=== PATIENT | female | born 1990 | race Two or more races ===

== ENCOUNTER → 2024-06-24 | Day surgery (SDC) | payer MEDICAID ==
[2024-06-22 09:54] LABS: Basophils # (auto) 0 10 ^3/uL (0-0.2); Basophils % (auto) 0.5 % (0.0-2.0); Eosinophils # (auto) 0.3 10 ^3/uL (0-0.8); Eosinophils % (auto) 3.5 % (0.0-7.0); Hematocrit 39.3 % (36.0-46.0); Lymphocytes # (auto) 2.6 10 ^3/uL (0.4-5.4); Lymphocytes % (auto) 29.2 % (10.0-50.0); Mean Corpuscular Hemoglobin 27.6 pg (28.0-32.0); Mean Corpuscular Volume 83.5 fL (80.0-100.0); Monocytes # (auto) 0.4 10 ^3/uL (0-1.3); Monocytes % (auto) 4.7 % (0.0-12.0); Neutrophils # (auto) 5.5 10 ^3/uL (1.6-8.6); Neutrophils % (auto) 62.1 % (37.0-80.0); Platelet Count (auto) 231 10^3/uL (140-450); Red Cell Distribution Width 13.7 % (11.8-14.3); White Blood Cell 8.9 10^3/uL (4.4-10.8)
[2024-06-22 09:59] LABS: Albumin 4.3 g/dL (3.2-4.8); Alkaline Phosphatase 84 U/L (46-116); Anion Gap 7 (5-15); Carbon Dioxide 28 mmol/L (20-31); Chloride 106 mmol/L (98-107); Potassium 3.9 mmol/L (3.5-5.1); Sodium 141 mmol/L (136-145)
[2024-06-22 10:00] LABS: Bilirubin, Total 0.4 mg/dL (0.2-1.0); Total Protein 6.7 g/dL (5.7-8.2)
[2024-06-22 10:02] LABS: INR 1.04 (0.9-1.15); Partial Thromboplastin Time 27.2 SEC (24.5-34.5)
[2024-06-22 10:07] LABS: Alanine Aminotransferase 125 U/L (7-40); Aspartate Aminotransferase 64 U/L (13-40); Blood Urea Nitrogen 8 mg/dL (9-23); Glucose 141 mg/dL (74-106)
--- NOTE | 2024-06-22 10:40 | DVHHP ---
ADMIT DATE: 06/24/2024 CHIEF COMPLAINT: Heavy menstrual bleeding. HISTORY OF PRESENT ILLNESS: This is a 33-year-old female 4, para 4, 3 living children. She has had 4 prior vaginal deliveries, one including a 22-week previable delivery. She has a history of bilateral salpingectomy for sterilization. The patient endorses a long history of chronic, heavy menstrual bleeding with regular cycles. Periods are associated with bloating and [id number] dysmenorrhea. Cycles are regular, every 28-33 days apart. Flow is 8-9 days with heavy clots and passage of excessive bleeding. She is using greater than 6-10 pads per day. She denies any dyspareunia. Workup has showed a normal Pap smear in 2023. Her pelvic ultrasound showed a normal uterus without any polyps or uterine fibroids. She has failed prior attempts of medical treatment to control her excessive menstrual bleeding. PAST MEDICAL HISTORY: Negative. PAST SURGICAL HISTORY: Laparoscopic bilateral tubal ligation via bilateral salpingectomy. MEDICATIONS: Vitamin D. ALLERGIES: DICLOFENAC. SOCIAL HISTORY: The patient is . 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 She denies any tobacco, alcohol or illicit drug use. REVIEW OF SYSTEMS: A 14-point review of systems is negative as otherwise stated in the history of present illness. PHYSICAL EXAMINATION: VITAL SIGNS: The patient is 5 foot 2 inches tall. She weighs 196 pounds. Blood pressure is 126/80. GENERAL: She is pleasant, alert, in no acute distress. HEENT: Normocephalic, atraumatic. Extraocular muscles intact. NECK: Supple, without any palpable thyromegaly. CHEST: Symmetrical with normal S1 and S2 heart sounds. No gallops or murmurs. PULMONARY: Clear to auscultation bilaterally. ABDOMEN: Soft. No masses, nontender. EXTREMITIES: Without cyanosis, edema or deformity. PELVIC: Deferred to the operating room. ASSESSMENT: * Menorrhagia. * Dysmenorrhea. PLAN: The patient will be admitted for outpatient procedure. She has consented for: Pelvic exam under anesthesia, operative hysteroscopy, uterine dilation and curettage, NovaSure endometrial ablation. The risks, benefits and alternatives to surgery have been discussed with the patient. Informed consent has been obtained. Risks of pain, bleeding, infection, uterine perforation, injury to adjacent organs, possible blood transfusion all discussed with the patient and informed consent was obtained. The patient also understands that this procedure is intended to diminish monthly menstrual flow. No guarantees given for resolution of dysmenorrhea or pelvic pain. No guarantee given for cessation of periods with complete amenorrhea. The patient verbalized understanding and informed consent was obtained. DO AQUILES Diaz/NETO TID: [id number] RECEIPT: [id number] MTDD
[2024-06-22 12:15] LABS: Urine Bacteria FEW /hpf (None Seen); Urine Blood Negative /uL (Negative); Urine Clarity Clear (Clear); Urine Color Light-Yellow (Yellow); Urine Protein, UAD Negative (Negative); Urine Urobilinogen Normal (Negative); Urine WBC 3 /hpf (0 - 5)
[~2024-06-24] VITALS: Ht 157.5 cm; Wt 83.5 kg
[~2024-06-24] MED LIST: CHOL20007 PO; DexAMETHasone SOD PHOS 10MG/1ML VIAL INJ ONE; HYDROmorphone HCL 2 MG/ML VL/or syr IV PRN; IBUP-1455 PO; LIDOCAINE 1% INJ PF 5ML AMP ONE; MEPERIDINE HCL (25 MG/ML) 1ML VIAL ONE; METOCLOPRAMIDE HCL 5MG/ml INJ 2ml VIAL ONE; MIDAZOLAM HCL 2MG/2ML 2ml VIAL (1mg/ml) ONE; MORPHINE SULFATE INJ 2 MG/ml SYRG IV PRN; ONDANSETRON HCL 4 MG/2 ML VIAL ONE; PROPOFOL 10 MG/ML 20 ML IV ONE; SODIUM CHLORIDE LOCK 10 ML ONE; ceFAZolin 2 GM/D5W100ml 100 ML IV ONE; fentaNYL CITRATE 100 MCG/2 ML VL IV PRN; fentaNYL CITRATE 100 MCG/2 ML VL ONE
[2024-06-24] MEDS: FERRIC SUBSULFATE TOPICAL SOLN 30 ML BTL ONE (13:40)
[2024-06-24 13:45] VITALS: PULSE 109; RESP 17; TEMP 97.8; O2SAT 99
[2024-06-24] MEDS: HYDROmorphone HCL 2 MG/ML VL/or syr IV PRN (14:34)
--- NOTE | 2024-06-24 14:38 | DVHOP ---
DATE OF SURGERY: 06/24/2024 PREOPERATIVE DIAGNOSIS: Excessive menstrual bleeding. POSTOPERATIVE DIAGNOSES: Excessive menstrual bleeding plus uterine enlargement. PROCEDURES PERFORMED: Pelvic exam under anesthesia, operative hysteroscopy, dilation and curettage, NovaSure endometrial ablation. SURGEON: Nicola Bynum DO TRAVELING ELECTRICIAN: Jay weathers. TYPE OF ANESTHESIA: General. ANESTHESIOLOGIST: Dr. Dinah Ng DESCRIPTION OF FINDINGS: An enlarged uterus, approximately 12-week size, uterine cavity sounds to 10 cm. Successful hysteroscopy revealed normal bilateral tubal ostia. No intrauterine pathology such as polyps or fibroids seen. No gross evidence of malignancy. TECHNICAL PROCEDURE: After informed consent was obtained, the patient was taken to the operating room where she underwent smooth induction with general anesthesia. The patient was placed in dorsal lithotomy position in Pawel stirrups. The vagina, perineum and abdomen were thoroughly prepped and the patient sterilely draped in usual fashion. A pelvic exam was then performed under anesthesia with the above noted findings. A weighted speculum was placed into the patient's vagina. The anterior lip of the cervix was grasped with a single tooth tenaculum. Uterine cavity sounded to 10 cm. A SureSound was used to calculate the total length of the uterine cavity, which was found to be 5 cm. Next, serial gentle dilation of the cervix was perforrmed with [place] dilators to achieve #7 mm of cervical dilation. A 0 degree hysteroscope was advanced through the endocervix and into the uterine cavity under direct visualization. Survey of the cavity revealed benign findings as described above. The hysteroscope was removed. A sharp uterine curettage was performed. The uterine curettings were placed on a Telfa pad and the specimen submitted. Next, the NovaSure device was introduced through the cervix into the uterine cavity. The device was seated per stone unloader's instructions. The uterine width was calculated to be 4.8 cm. Initially, the cavity integrity test did not pass likely due to enlarged uterine size and leaking of gas from the cervix. I therefore put a pursestring stitch of #1 Vicryl around the cervix and this was cinched down. The cavity integrity test passed upon performing this maneuver. The endometrial ablation cycle was then initiated and continued for approximately 1 minute 16 seconds. At the conclusion of the ablation, the array was removed from the patient's uterus and another diagnostic hysteroscopy was performed and photodocumentation was obtained. The endometrial cavity proved to be successfully fully ablated.. The hysteroscope was removed. There was minimal bleeding from the ectocervix noted at the site of tenaculum site application at 12:00 O'clock. Interrupted sutures of 3-0 Vicryl were placed across the anterior lip of the cervix with good hemostasis noted. Minimal bleeding from the posterior cervix was noted and Monsel's was applied with good hemostasis. At this point, all instrumentation was removed from the patient's vagina. She was taken out of lithotomy position, awakened, and taken to recovery room in stable condition. INTRAOPERATIVE COMPLICATIONS: None. ESTIMATED BLOOD LOSS: Less than 25 mL. POSTOPERATIVE CONDITION: Stable. SPECIMENS: Endometrial curetting (EMC) COMPLICATIONS: None. DO AQUILES Diaz/GRETEL TID: [id number] RECEIPT: [id number] MTDD
[2024-06-24 14:50] VITALS: BP 130/79; PULSE 94; RESP 15; O2SAT 95
[2024-06-24] MEDS: METOCLOPRAMIDE HCL 5MG/ml INJ 2ml VIAL IV ONE (15:07)
== END | disposition home or self-care (01) ==
LOC: SUR 08:54
PROVIDERS: ATTEND Obstetrics & Gynecology
DX: N93.9 Abnormal uterine and vaginal bleeding, unspecified (principal); N92.0 Excessive and frequent menstruation with regular cycle; N94.6 Dysmenorrhea, unspecified; E66.9 Obesity, unspecified; Z68.33 Body mass index [BMI] 33.0-33.9, adult; Z90.79 Acquired absence of other genital organ(s); Z64.1 Problems related to multiparity
CPT/HCPCS: 36415; 58563; 80053; 81001; 84702; 85025; 85610; 85730; 86850; 86900; 86901; 88305; J1100; J1171; J2175; J2250; J2405; J2704; J2765; J3010

== ENCOUNTER 2025-01-25 12:47 | Outpatient (CLI) | payer MEDICAID ==
[~2025-01-25 12:47] MED LIST changes: -DexAMETHasone SOD PHOS 10MG/1ML VIAL INJ ONE; -HYDROmorphone HCL 2 MG/ML VL/or syr IV PRN; -LIDOCAINE 1% INJ PF 5ML AMP ONE; -MEPERIDINE HCL (25 MG/ML) 1ML VIAL ONE; -METOCLOPRAMIDE HCL 5MG/ml INJ 2ml VIAL ONE; -MIDAZOLAM HCL 2MG/2ML 2ml VIAL (1mg/ml) ONE; -MORPHINE SULFATE INJ 2 MG/ml SYRG IV PRN; -ONDANSETRON HCL 4 MG/2 ML VIAL ONE; -PROPOFOL 10 MG/ML 20 ML IV ONE; -SODIUM CHLORIDE LOCK 10 ML ONE; -ceFAZolin 2 GM/D5W100ml 100 ML IV ONE; -fentaNYL CITRATE 100 MCG/2 ML VL IV PRN; -fentaNYL CITRATE 100 MCG/2 ML VL ONE
[2025-01-25 13:07] LABS: Hematocrit 44.1 % (36.0-46.0); Hemoglobin 14.8 g/dL (12.2-16.2); Mean Corpuscular Hemoglobin 28.1 pg (28.0-32.0); Mean Corpuscular Volume 83.5 fL (80.0-100.0); Nucleated Red Blood Cells % 0.1 %
[2025-01-25 13:40] LABS: Alanine Aminotransferase 19 U/L (7-40); Albumin 5.3 g/dL (3.2-4.8); Alkaline Phosphatase 104 U/L (46-116); Anion Gap 9 (5-15); BUN/Creatinine Ratio 10.0 (10.0-20.0); Bilirubin, Total 0.6 mg/dL (0.2-1.0); Blood Urea Nitrogen 8 mg/dL (9-23); Calcium 10.8 mg/dL (8.7-10.4); Carbon Dioxide 28 mmol/L (20-31); Chloride 104 mmol/L (98-107); Glucose 116 mg/dL (74-106); Potassium 3.9 mmol/L (3.5-5.1); Sodium 141 mmol/L (136-145); Total Protein 7.8 g/dL (5.7-8.2)
[2025-01-26 15:07] LABS: Chlamydia Trachomatis, NAA Negative (Negative); Neisseria gonorrhoeae, NAA Negative (Negative)
== END 2025-01-25 17:00 | disposition home or self-care (01) ==
LOC: LAB 12:47
PROVIDERS: ATTEND Obstetrics & Gynecology
DX: Z01.419 Encounter for gynecological examination (general) (routine) without abnormal findings (principal); Z11.2 Encounter for screening for other bacterial diseases; Z11.3 Encounter for screening for infections with a predominantly sexual mode of transmission; Z79.899 Other long term (current) drug therapy
CPT/HCPCS: 36415; 80053; 83036; 84439; 84443; 85025; 86703; 86780; 87340